=== PATIENT | female | born 1955 | race Caucasian/White ===

== ENCOUNTER → 2017-04-24 | Outpatient (CLI) | payer OTHER ==
[~2017-04-24] MED LIST: ALBUTEROL0.09 MG/A2 INH; CYMBALTA60 MG; DARVOCET N 1001 TAB PO; DUEXIS 800-26.1 EACH PO; ESTRADIOL PATCH; KCL; KLONOPIN0.5 MG PO; LEVAQUIN750 MG PO; METAMUCIL; METAMUCIL0.52 GM; NORVASC10 MG PO; NORVASC2.5 MG PO; NORVASC5 MG PO; POTASSIUM CHLO10 ME5 PO; POTASSIUM20 MEQ PO; PREDNISONE50 MG PO; PREMARIN1.25 MG PO; PREVACID30 MG; PRILOSEC20 M1 PO; PRILOSEC40 MG PO; PROBIOTIC1 EAC4 PO; SYMBICORT1 AE1; TAMIFLU75 MG PO; TENORMIN50 MG; TESSALON PERLE100 M1 PO; XANAX0.25 MG PO; ZITHROMAX Z PA250 MG PO; ZOFRAN ODT4 MG SL; ZOLOFT100 MG PO
== END | disposition home or self-care (01) ==
LOC: MRI 06:23
DX: M48.07 Spinal stenosis, lumbosacral region (principal); M51.16 Intervertebral disc disorders with radiculopathy, lumbar region; M43.10 Spondylolisthesis, site unspecified; M47.896 Other spondylosis, lumbar region; M51.27 Other intervertebral disc displacement, lumbosacral region

== ENCOUNTER 2017-06-01 10:50 | Inpatient (IN) | payer OTHER ==
[~2017-06-01] VITALS: Ht 152.4 cm; Wt 66.4 kg
--- NOTE | ~2017-06-01 | CON ---
[place], [place] REPORT OF CONSULTATION [id number] UNIT #: [id number] ROOM: 402 DOCTOR: MARELY CAMPBELL MD BIRTHDATE: [birth year] DOS: 06/02/2017 REASON FOR CONSULTATION: Chest pain. HISTORY OF PRESENT ILLNESS: This is a 61-year-old woman who has previously unknown to [facility]. She had been evaluated in the past by Dr. Tj Hendricks, but has not seen a medicinal chemist in years. She states that she had problems with esophageal spasm and accompanying chest pain years ago. According to her report, a cardiac workup was entirely normal. A pharmacologic myocardial perfusion study done on 07/29/2012 was unremarkable. Eventually, a diagnosis of esophageal spasm was made. She was treated with Klonopin 0.5 mg twice a day and sublingual nitroglycerin p.r.n. She states that her symptoms resolved after that and she has not had significant chest pain in well over a year. She states that she has been under considerable stress lately. 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 She has not had any exertional chest pain. On 06/01/2017, she was caring for a horse that was having a colic. She felt severely stressed and developed chest pain. She stated that it was identical to the pains that she had had in the past. She took 3 of her nitroglycerin without immediate relief and therefore, EMS were called. By the time they arrived, she began to feel better. It is noteworthy that her nitroglycerin tablets were old and in 2011. In the Emergency Room, her myoglobin and MB were elevated. Total CK was normal. Serial troponin levels were all normal. It is likely that the myoglobin was due to skeletal muscle trauma from the fact that she had recently dropped an anvil on her foot. She had no acute EKG changes. She was watched overnight and had no further recurrence of her pain. We were asked to determine if any other cardiac workup was appropriate at this time. PAST MEDICAL HISTORY: Includes: 1. Essential hypertension. 2. Gastroesophageal reflux disease. 3. Hyperlipidemia. 4. Anxiety and depression. 5. History of hand surgery, right knee surgery, shoulder surgery, thumb surgery, tubal ligation, carpal tunnel surgery, cholecystectomy, hysterectomy, section, and laminectomy. 6. History of hypokalemia, probably due to insensible loss from excessive sweating. REVIEW OF SYSTEMS: The patient denies diplopia or loss of vision. She denies lightheadedness or syncope. She denies fevers, chills, sweats or recent weight change. She denies nausea or vomiting. She does have chronic back pain. She denies orthopnea or PND. She denies any change in bowel or bladder habits. She denies blood in her stools or urine. She denies hemoptysis or hematemesis. She denies any peripheral edema. She does sweat heavily, but this is a chronic condition for her. The remainder of her review of systems is normal except as [place], [place] REPORT OF CONSULTATION NAME: SERGO ELIZABETH UNIT #: [id number] ROOM: 402 DOCTOR: MARELY CAMPBELL MD BIRTHDATE: [birth year] noted above. MEDICATIONS: Prior to admission, amlodipine 10 mg daily, clonazepam 0.5 mg b.i.d., conjugated estrogens 0.9 mg at bedtime, ibuprofen with famotidine 800/26.6 one t.i.d., probiotic daily, omeprazole 40 mg daily, oxycodone with acetaminophen once a day, potassium 10 mEq daily, rosuvastatin 40 mg at bedtime, sertraline 100 mg daily, vitamin E with Coenzyme Q10 two a day and nitroglycerin 0.6 mg sublingually p.r.n. chest pain. ALLERGIES: The patient lists allergies to ONDANSETRON and PRODUCTS. SOCIAL HISTORY: The patient works on a farm including raising horses. She does not consume alcohol or cigarettes. PHYSICAL EXAMINATION: GENERAL: The patient is a well-nourished white female who is awake, alert and oriented. VITAL SIGNS: Pulse is 67 and regular, blood pressure 122/74, she is afebrile. She weighs 66.4 kg and has a body mass index 28.6. HEENT: Normocephalic, atraumatic. Extraocular muscles are intact. Sclerae are clear. Pupils are equal, round and reactive to light. Oral mucosa is moist. Tongue is midline. NECK: Supple. She has no jugular distention. Carotids are full. I heard no bruits. She had no neck or supraclavicular masses. No thyromegaly. LUNGS: Respirations are unlabored. Her chest is clear to auscultation and percussion. She has no presacral edema or chest wall tenderness. CARDIOVASCULAR: Has a regular rhythm. She has a soft S4 gallop, but no S3 or murmur. The PMI is not displaced. She has no precordial heave, lift or thrill. ABDOMEN: Soft and normally active without masses, organomegaly or bruits. EXTREMITIES: Showed no edema. Peripheral pulses are easily palpated in the feet bilaterally. Serial troponin levels have been normal. IMPRESSIONS: 1. Atypical chest pain. It is most likely that this does indeed represent esophageal spasm. In the past, this has resolved quickly when the patient has taken nitroglycerin. Unfortunately, the nitroglycerin she had on hand was in 2011 and therefore, unlikely to be at all potent. 2. History of hypertension. 3. History of hyperlipidemia. 4. History of hypokalemia, most likely due to loss from excessive sweating. 5. Degenerative joint disease. PLAN: The patient has very rare episodes of her esophageal spasm. She denies any recent change in exercise capacity and has had a cardiac workup in the past that was benign. I think therefore that further hospitalization for cardiac evaluation now is not indicated. If her symptoms recur, we could evaluate her as an outpatient with a stress test and echocardiogram. For now, I agree that p.r.n. nitrates are appropriate for esophageal spasm. We could consider [place], [place] REPORT OF CONSULTATION NAME: SERGO ELIZABETH UNIT #: [id number] ROOM: 402 DOCTOR: MAERLY CAMPBELL MD BIRTHDATE: [birth year] isosorbide if her symptoms become more frequent and especially if she does not have any evidence for coronary artery disease on further testing. From our perspective, she could be discharged to home. I did give her my card and told her to call our office if her symptoms recur. We would arrange at that point for her to have a stress test in followup. For now, I did recommend to the hospitalist service that they provide her prescription for fresh nitroglycerin so that in the future if she has chest pains, she has something that would be effective for this management. We thank the hospitalist physicians for asking our advice regarding her care. MARELY CAMPBELL MD CM:CONSTR:REPORT OF CONSULTATION 1320 06/02/17 1420 interface
[2017-06-01 10:50] VITALS: BP 126/80
[2017-06-01 11:10] LABS: BASO # 0.1 10*3/uL (0.0-0.1); BASO % 0.6 % (0.0-1.0); EOS # 0.1 10*3/uL (0.0-0.4); EOS % 0.7 % (1.0-4.0); HEMOGLOBIN 14.2 g/dl (12.0-16.0); LYMPH # 2.3 10*3/uL (1.3-4.4); LYMPH % 27.4 % (27.0-41.0); MEAN CELL VOLUME 89.2 fl (81.0-99.0); MEAN CORPUSCULAR HGB 30.1 pg (27.0-31.0); MEAN CORPUSCULAR HGB CONC 33.8 g/dl (33.0-37.0); MEAN PLATELET VOLUME 9.4 fl (9.6-12.3); MONO # 0.6 10*3/uL (0.1-1.0); MONO % 7.6 % (3.0-9.0); NEUT # 5.3 10*3/uL (2.3-7.9); NEUT % 63.5 % (47.0-73.0); PLATELET COUNT AUTOMATED 310 10*3/uL (130-400); RED BLOOD COUNT 4.71 10*6/uL (4.10-5.10); RED CELL DISTRI WIDTH 13.2 % (0-14.5); WHITE BLOOD COUNT 8.3 10*3/uL (4.8-10.8)
[2017-06-01 11:19] LABS: PROTHROMBIN TIME 10.4 SECONDS (9.0-12.4)
[2017-06-01 11:27] LABS: ALBUMIN 3.6 gm/dl (3.1-4.5); ALKALINE PHOSPHATASE 65 U/L (45-117); BILIRUBIN, TOTAL 0.3 mg/dl (0.2-1.0); BUN 16 mg/dl (7-24); C-REACTIVE PROTEIN 0.39 MG/DL (0-0.3); CARBON DIOXIDE 24 mmol/L (21-32); CHLORIDE 108 mmol/L (98-107); CPK 116 U/L (26-192); EST GLOM FILT AFRICAN AMERICAN > 60 ml/min; GLUCOSE 112 mg/dL (65-99); MAGNESIUM 1.7 mg/dL (1.5-2.1); POTASSIUM 3.3 mmol/L (3.5-5.1); SGOT/AST 21 IU/L (3-35); SGPT/ALT 40 U/L (12-78); SODIUM 142 mmol/L (136-145)
[2017-06-01 11:28] LABS: TROPONIN I < 0.015 ng/ml (<0.045)
[2017-06-01 11:30] LABS: CKMB 5.7 ng/ml (0.5-3.6)
[2017-06-01 11:50] VITALS: BP 125/80
[2017-06-01 12:01] VITALS: BP 127/77
[2017-06-01] MEDS ORDERED: PREMARIN0.9 MG PO (12:39)
[2017-06-01] MEDS ORDERED: CRESTOR40 M1 PO (12:40)
[2017-06-01 16:07] VITALS: BP 127/76
[2017-06-01 20:00] VITALS: BP 121/74
[2017-06-01] MEDS ORDERED: COQ10-VIT E 201 EACH PO (21:15)
[2017-06-01] MEDS ORDERED: APAP/OXYCODONE1 TA2 PO (21:16)
[2017-06-01] MEDS ORDERED: NITROGLYCERIN SL (21:26)
[2017-06-02] VITALS: BP 137/84
[2017-06-02 07:06] LABS: BASO % 0.5 % (0.0-1.0); EOS # 0.1 10*3/uL (0.0-0.4); EOS % 1.7 % (1.0-4.0); HEMATOCRIT 41.1 % (37.0-47.0); HEMOGLOBIN 13.9 g/dl (12.0-16.0); LYMPH # 2.1 10*3/uL (1.3-4.4); LYMPH % 33.9 % (27.0-41.0); MEAN CELL VOLUME 90.3 fl (81.0-99.0); MEAN CORPUSCULAR HGB 30.5 pg (27.0-31.0); MEAN CORPUSCULAR HGB CONC 33.8 g/dl (33.0-37.0); MEAN PLATELET VOLUME 8.9 fl (9.6-12.3); MONO # 0.5 10*3/uL (0.1-1.0); MONO % 8.1 % (3.0-9.0); NEUT # 3.5 10*3/uL (2.3-7.9); NEUT % 55.5 % (47.0-73.0); PLATELET COUNT AUTOMATED 280 10*3/uL (130-400); RED BLOOD COUNT 4.55 10*6/uL (4.10-5.10); RED CELL DISTRI WIDTH 13.5 % (0-14.5); WHITE BLOOD COUNT 6.3 10*3/uL (4.8-10.8)
[2017-06-02 07:40] LABS: BUN 18 mg/dl (7-24); CARBON DIOXIDE 26 mmol/L (21-32); CHLORIDE 105 mmol/L (98-107); CHOLESTEROL 161 mg/dL (<200); EST GLOM FILT AFRICAN AMERICAN > 60 ml/min; GLUCOSE 93 mg/dL (65-99); HDL CHOLESTEROL 81 mg/dl (40-60); LDL CHOLESTEROL 68 mg/dL (9-159); SODIUM 139 mmol/L (136-145); TRIGLYCERIDES 62 mg/dl (<150); VLDL CHOLESTEROL 12 mg/dL (6-40)
[2017-06-02 07:41] LABS: HEMOGLOBIN A1c 5.9 % (4.8-5.6)
[2017-06-02 07:47] LABS: THYROID STIM HORMONE (HS) 0.643 uIU/ml (0.358-4.75)
[2017-06-02 08:00] VITALS: BP 112/78
[2017-06-02 08:08] LABS: VITAMIN D, 25-HYDROXY 18.6 ng/mL (30-100)
[2017-06-02 08:09] LABS: FOLIC ACID 11.69 ng/mL (>5.38)
[2017-06-02] MEDS ORDERED: KLOR-CON M2020 ME1 PO (11:39)
[2017-06-02 12:00] VITALS: BP 122/74
[2017-06-02] MEDS ORDERED: NITROGLYCERIN SL (13:08)
== END 2017-06-02 13:57 | disposition home or self-care (01) | DRG 313 ==
LOC: ED 10:50 → 4E 12:14 → EDHOLD 12:14 → 4E 12:21
PROVIDERS: Emergency Medicine; Internal Medicine
DX: R07.89 Other chest pain (principal); E87.8 Other disorders of electrolyte and fluid balance, not elsewhere classified; F33.9 Major depressive disorder, recurrent, unspecified; E87.6 Hypokalemia; I10 Essential (primary) hypertension; F41.9 Anxiety disorder, unspecified; K21.9 Gastro-esophageal reflux disease without esophagitis; N95.1 Menopausal and female climacteric states; E78.5 Hyperlipidemia, unspecified; M15.9 Polyosteoarthritis, unspecified; G47.00 Insomnia, unspecified; R73.9 Hyperglycemia, unspecified; R74.8 Abnormal levels of other serum enzymes; Z66 Do not resuscitate; R89.7 Abnormal histological findings in specimens from other organs, systems and tissues; Z83.3 Family history of diabetes mellitus; Z88.8 Allergy status to other drugs, medicaments and biological substances; Z90.49 Acquired absence of other specified parts of digestive tract; Z90.710 Acquired absence of both cervix and uterus; Z79.899 Other long term (current) drug therapy

== ENCOUNTER 2017-10-27 16:04 | Emergency (ER) | payer OTHER ==
[~2017-10-27] VITALS: Wt 70.3 kg
[~2017-10-27 16:04] MED LIST changes: +APAP/OXYCODONE1 TA2 PO; +COQ10-VIT E 201 EACH PO; +CRESTOR40 M1 PO; +KLOR-CON M2020 ME1 PO; +NITROGLYCERIN SL; +PREMARIN0.9 MG PO
[2017-10-27] MEDS ORDERED: KEFLEX 500 MG E2 CAP PO (16:10)
[2017-10-27 16:33] LABS: BASO % 0.6 % (0.0-1.0); EOS # 0.3 10*3/uL (0.0-0.4); EOS % 5.1 % (1.0-4.0); HEMOGLOBIN 15.4 g/dl (12.0-16.0); LYMPH # 1.5 10*3/uL (1.3-4.4); LYMPH % 23.2 % (27.0-41.0); MEAN CELL VOLUME 89.7 fl (81.0-99.0); MEAN CORPUSCULAR HGB CONC 33.5 g/dl (33.0-37.0); MEAN PLATELET VOLUME 9.3 fl (9.6-12.3); MONO # 0.7 10*3/uL (0.1-1.0); MONO % 10.1 % (3.0-9.0); NEUT % 60.7 % (47.0-73.0); PLATELET COUNT AUTOMATED 322 10*3/uL (130-400); RED BLOOD COUNT 5.13 10*6/uL (4.10-5.10); RED CELL DISTRI WIDTH 13.2 % (0-14.5); WHITE BLOOD COUNT 6.7 10*3/uL (4.8-10.8)
[2017-10-27 16:49] LABS: ALBUMIN 3.7 gm/dl (3.1-4.5); ALKALINE PHOSPHATASE 85 U/L (45-117); BUN 8 mg/dl (7-24); CHLORIDE 106 mmol/L (98-107); CREATININE 0.91 mg/dL (0.55-1.02); LIPASE 116 U/L (73-393); POTASSIUM 3.7 mmol/L (3.5-5.1); SGOT/AST 50 IU/L (3-35); SGPT/ALT 61 U/L (12-78); SODIUM 139 mmol/L (136-145)
[2017-10-27] MEDS ORDERED: PHENERGAN25 M3 PO (17:21)
[2017-10-27] MEDS ORDERED: LOMOTIL 2.5-0.1 EACH PO (17:21)
== END 2017-10-27 17:22 | disposition home or self-care (01) ==
LOC: ED 16:04
PROVIDERS: Emergency Medicine
DX: K52.9 Noninfective gastroenteritis and colitis, unspecified (principal); F41.9 Anxiety disorder, unspecified; F32.9 Major depressive disorder, single episode, unspecified; K21.9 Gastro-esophageal reflux disease without esophagitis; E78.00 Pure hypercholesterolemia, unspecified; R73.9 Hyperglycemia, unspecified; G47.00 Insomnia, unspecified; Z91.048 Other nonmedicinal substance allergy status; Z88.8 Allergy status to other drugs, medicaments and biological substances; Z79.899 Other long term (current) drug therapy; Z90.710 Acquired absence of both cervix and uterus; Z90.49 Acquired absence of other specified parts of digestive tract; Z98.51 Tubal ligation status

== ENCOUNTER → 2018-04-29 | Outpatient (CLI) | payer OTHER ==
[~2018-04-29] MED LIST changes: +KEFLEX 500 MG E2 CAP PO; +LOMOTIL 2.5-0.1 EACH PO; +PHENERGAN25 M3 PO
== END | disposition home or self-care (01) ==
LOC: ORTHO 02:37
DX: M25.461 Effusion, right knee (principal); Z91.81 History of falling

== ENCOUNTER → 2018-05-15 | Outpatient (CLI) | payer OTHER | END | disposition home or self-care (01) | LOC: MRI 13:37 | DX: S83.231A Complex tear of medial meniscus, current injury, right knee, initial encounter (principal); M25.461 Effusion, right knee; X58.XXXA Exposure to other specified factors, initial encounter; Y93.89 Activity, other specified; Y92.89 Other specified places as the place of occurrence of the external cause; Y99.8 Other external cause status ==

== ENCOUNTER → 2018-05-21 | Outpatient (CLI) | payer OTHER ==
[2018-05-21 15:14] LABS: BODY FLUID WBC 235 /uL
[2018-05-21 15:51] LABS: BF LYMPHOCYTES 6 %; BF MACROPHAGES 71 %; BF MONOCYTES 1 %; BF NEUTROPHILS 22 %
== END | disposition home or self-care (01) ==
LOC: ORTHO 03:35
PROVIDERS: Orthopaedic Surgery
DX: M17.11 Unilateral primary osteoarthritis, right knee (principal)

== ENCOUNTER → 2018-06-05 | Outpatient (CLI) | payer OTHER ==
[2018-06-05 15:08] LABS: HEMATOCRIT 48.7 % (37.0-47.0); HEMOGLOBIN 15.9 g/dl (12.0-16.0); MEAN CELL VOLUME 88.7 fl (81.0-99.0); MEAN CORPUSCULAR HGB CONC 32.6 g/dl (33.0-37.0); MEAN PLATELET VOLUME 9.1 fl (9.6-12.3); RED BLOOD COUNT 5.49 10*6/uL (4.10-5.10); RED CELL DISTRI WIDTH 13.7 % (0-14.5); WHITE BLOOD COUNT 9.3 10*3/uL (4.8-10.8)
[2018-06-05 15:37] LABS: URIC ACID 4.4 mg/dL (2.6-6.0)
[2018-06-06 09:05] LABS: RHEUMATOID ARTHRITIS FACTOR 10.9 IU/mL (0.0-13.9)
== END | disposition home or self-care (01) ==
LOC: LAB → ORTHO 01:39
PROVIDERS: Orthopaedic Surgery
DX: I10 Essential (primary) hypertension (principal); M17.10 Unilateral primary osteoarthritis, unspecified knee; E55.9 Vitamin D deficiency, unspecified

== ENCOUNTER → 2018-07-23 | Outpatient (CLI) | payer OTHER ==
[~2018-07-23] MED LIST changes: +NORCO 5-325 TA1 EACH PO
[2018-07-23 12:05] LABS: BILIRUBIN NEGATIVE (NEGATIVE); BLOOD 1+ (NEGATIVE); CLARITY SL CLOUDY (CLEAR); COLOR YELLOW (YELLOW); GLUCOSE NEGATIVE (NEGATIVE); KETONE NEGATIVE (NEGATIVE); LEUKO ESTERASE 1+ (NEGATIVE); NITRITE NEGATIVE (NEGATIVE); SPECIFIC GRAVITY 1.025 (1.005-1.030); UROBILINOGEN 0.2 E.U./dl (0.2-1.0)
[2018-07-23 12:11] LABS: BASO # 0.1 10*3/uL (0.0-0.1); EOS # 0.2 10*3/uL (0.0-0.4); EOS % 3.9 % (1.0-4.0); HEMATOCRIT 43.6 % (37.0-47.0); HEMOGLOBIN 14.1 g/dl (12.0-16.0); LYMPH # 2.4 10*3/uL (1.3-4.4); LYMPH % 39.3 % (27.0-41.0); MEAN CELL VOLUME 89.3 fl (81.0-99.0); MEAN CORPUSCULAR HGB 28.9 pg (27.0-31.0); MEAN CORPUSCULAR HGB CONC 32.3 g/dl (33.0-37.0); MEAN PLATELET VOLUME 9.3 fl (9.6-12.3); MONO # 0.6 10*3/uL (0.1-1.0); MONO % 9.3 % (3.0-9.0); NEUT # 2.9 10*3/uL (2.3-7.9); NEUT % 46.3 % (47.0-73.0); PLATELET COUNT AUTOMATED 327 10*3/uL (130-400); RED BLOOD COUNT 4.88 10*6/uL (4.10-5.10); RED CELL DISTRI WIDTH 13.8 % (0-14.5); WHITE BLOOD COUNT 6.2 10*3/uL (4.8-10.8)
[2018-07-23 12:28] LABS: BACTERIA 2+; MUCOUS 2+
[2018-07-23 12:36] LABS: ALBUMIN 3.7 gm/dl (3.1-4.5); ALKALINE PHOSPHATASE 79 U/L (45-117); BUN 10 mg/dl (7-24); CHLORIDE 107 mmol/L (98-107); CREATININE 0.81 mg/dL (0.55-1.02); POTASSIUM 3.8 mmol/L (3.5-5.1); SGOT/AST 14 IU/L (3-35); SGPT/ALT 20 U/L (12-78); SODIUM 142 mmol/L (136-145); TOTAL PROTEIN 7.3 gm/dL (6.4-8.2)
== END | disposition home or self-care (01) ==
LOC: LAB 11:27
PROVIDERS: Orthopaedic Surgery
DX: Z01.818 Encounter for other preprocedural examination (principal); S83.241A Other tear of medial meniscus, current injury, right knee, initial encounter; X58.XXXA Exposure to other specified factors, initial encounter; Y93.89 Activity, other specified; Y92.89 Other specified places as the place of occurrence of the external cause; Y99.8 Other external cause status

== ENCOUNTER → 2018-07-30 | Day surgery (SDC) | payer OTHER ==
[2018-07-30] VITALS (8 sets, daily range): BP systolic 108–143; BP diastolic 53–96
[~2018-07-30] VITALS: Ht 152.4 cm; Wt 68.0 kg
--- NOTE | ~2018-07-30 | EKG ---
[place], [place] ELECTROCARDIOGRAM REPORT NAME: SERGO ELIZABETH UNIT #: [id number] ROOM: DOCTOR: GOPI DRAFT REPORT BIRTHDATE: [birth year] [facility] Test Date: 2018-07-23 Test Time: 12:53:16 Pat Name: SERGO ELIZABETH Department: Room: [facility] 07-30-18 Gender: F Director Of Intelligence: : 1955 Requested By: BHASKAR CARRIZALES Order Number: [id number] Reading MD: Jomar Shah MD Measurements Intervals [place] Rate: 54 P: 36 MS: 188 QRS: 33 QRSD: 85 T: 25 QT: 475 QTc: 451 Interpretive Statements Sinus rhythm Probable left atrial enlargement Left ventricular hypertrophy Borderline T abnormalities, anterior leads Electronically Signed On 07-23-2018 11:07:49 PDT by Jomar Shah MD CM:EKGRPT:ELECTROCARDIOGRAM REPORT [id number] BHASKAR HOSKINS DRAFT REPORT BHASKAR CARRIZALES DO
== END | disposition home or self-care (01) ==
LOC: SDC 07-23 11:00
DX: S83.241A Other tear of medial meniscus, current injury, right knee, initial encounter (principal); S83.271A Complex tear of lateral meniscus, current injury, right knee, initial encounter; M94.261 Chondromalacia, right knee; I10 Essential (primary) hypertension; J44.9 Chronic obstructive pulmonary disease, unspecified; K21.9 Gastro-esophageal reflux disease without esophagitis; Z88.8 Allergy status to other drugs, medicaments and biological substances; Z91.09 Other allergy status, other than to drugs and biological substances; Z98.890 Other specified postprocedural states; Z87.11 Personal history of peptic ulcer disease; Z90.710 Acquired absence of both cervix and uterus; X58.XXXA Exposure to other specified factors, initial encounter; Y93.89 Activity, other specified; Y92.89 Other specified places as the place of occurrence of the external cause; Y99.8 Other external cause status

== ENCOUNTER → 2018-09-07 | Outpatient (CLI) | payer OTHER | END | disposition home or self-care (01) | LOC: ORTHO 02:07 → WOUNDCARE 02:07 → LAB 08:00 → ORTHO 17:12 | DX: L97.521 Non-pressure chronic ulcer of other part of left foot limited to breakdown of skin (principal); I10 Essential (primary) hypertension; F41.9 Anxiety disorder, unspecified; Z85.820 Personal history of malignant melanoma of skin; Z90.710 Acquired absence of both cervix and uterus ==

== ENCOUNTER → 2018-09-14 | Outpatient (CLI) | payer OTHER | END | disposition home or self-care (01) | LOC: WOUNDCARE 04:35 | DX: L97.522 Non-pressure chronic ulcer of other part of left foot with fat layer exposed (principal); I10 Essential (primary) hypertension; F32.9 Major depressive disorder, single episode, unspecified; Z85.820 Personal history of malignant melanoma of skin ==

== ENCOUNTER → 2018-09-29 | Outpatient (CLI) | payer OTHER | END | disposition home or self-care (01) | LOC: WOUNDCARE 01:25 | DX: L97.522 Non-pressure chronic ulcer of other part of left foot with fat layer exposed (principal); I10 Essential (primary) hypertension; F41.9 Anxiety disorder, unspecified; Z85.820 Personal history of malignant melanoma of skin ==

== ENCOUNTER → 2018-10-05 | Outpatient (CLI) | payer OTHER | END | disposition home or self-care (01) | LOC: WOUNDCARE 02:26 | DX: L97.521 Non-pressure chronic ulcer of other part of left foot limited to breakdown of skin (principal); I10 Essential (primary) hypertension; F41.9 Anxiety disorder, unspecified; Z85.820 Personal history of malignant melanoma of skin ==

== ENCOUNTER → 2018-11-09 | Outpatient (CLI) | payer OTHER ==
[~2018-11-09] MED LIST changes: +CO Q-10400 MG PO; +Carafate1 GM/10 ML PO; +VITAMIN D35000 UNIT PO
--- NOTE | ~2018-11-09 | EKG ---
[place], [place] ELECTROCARDIOGRAM REPORT NAME: SERGO ELIZABETH UNIT #: [id number] ROOM: DOCTOR: EPIPHANY DRAFT REPORT BIRTHDATE: [birth year] [facility] Test Date: 2018-11-09 Test Time: 12:29:08 Pat Name: SERGO ELIZABETH Department: Room: Gender: F Shoe Maker: Aimee Dorman : 1955 Requested By: POLA LUEVANO Order Number: [id number] Reading MD: Beny Flores MD Measurements Intervals [place] Rate: 67 P: 31 MO: 177 QRS: 25 QRSD: 88 T: 19 QT: 404 QTc: 427 Interpretive Statements Sinus rhythm Left ventricular hypertrophy with secondary ST changes Compared to ECG 07/23/2018 12:53:16 No significant change Electronically Signed On 11-09-2018 15:09:55 PST by Beny Flores MD CM:EKGRPT:ELECTROCARDIOGRAM REPORT [id number] MD GOPI ROUSSEAU DRAFT REPORT POLA LUEVANO MD
[2018-11-09 12:35] LABS: BASO % 0.5 % (0.0-1.0); EOS # 0.1 10*3/uL (0.0-0.4); EOS % 1.6 % (1.0-4.0); HEMOGLOBIN 15.5 g/dl (12.0-16.0); LYMPH # 3.1 10*3/uL (1.3-4.4); LYMPH % 35.5 % (27.0-41.0); MEAN CELL VOLUME 88.1 fl (81.0-99.0); MEAN CORPUSCULAR HGB 28.4 pg (27.0-31.0); MEAN CORPUSCULAR HGB CONC 32.3 g/dl (33.0-37.0); MEAN PLATELET VOLUME 9.2 fl (9.6-12.3); MONO # 0.6 10*3/uL (0.1-1.0); MONO % 6.7 % (3.0-9.0); NEUT # 4.9 10*3/uL (2.3-7.9); NEUT % 55.1 % (47.0-73.0); PLATELET COUNT AUTOMATED 311 10*3/uL (130-400); RED BLOOD COUNT 5.45 10*6/uL (4.10-5.10); RED CELL DISTRI WIDTH 14.4 % (0-14.5); WHITE BLOOD COUNT 8.8 10*3/uL (4.8-10.8)
[2018-11-09 12:53] LABS: BUN 13 mg/dl (7-24); CHLORIDE 109 mmol/L (98-107); CREATININE 0.87 mg/dL (0.55-1.02); POTASSIUM 3.6 mmol/L (3.5-5.1); SODIUM 144 mmol/L (136-145)
== END | disposition home or self-care (01) ==
LOC: LAB 11:53
PROVIDERS: Orthopaedic Surgery
DX: M19.011 Primary osteoarthritis, right shoulder (principal); J18.9 Pneumonia, unspecified organism

== ENCOUNTER → 2019-03-17 | Outpatient (CLI) | payer OTHER ==
[~2019-03-17] MED LIST changes: +ASPIRIN325 M2 PO; +HYDROCODONE-AC1 EAC1 PO; +KETOROLAC10 MG PO; +Lovenox40 MG/0.4 SC
[2019-03-17 13:55] LABS: BODY FLUID WBC 181 /uL
[2019-03-17 19:42] LABS: BF LYMPHOCYTES 17 %; BF MACROPHAGES 77 %; BF NEUTROPHILS 6 %
== END | disposition home or self-care (01) ==
LOC: ORTHO 00:36
PROVIDERS: Orthopaedic Surgery
DX: M17.11 Unilateral primary osteoarthritis, right knee (principal)

== ENCOUNTER 2019-06-15 00:38 | Inpatient (IN) | payer OTHER ==
[2019-06-10 18:10] VITALS: BP 130/67
[2019-06-15] VITALS (11 sets, daily range): BP systolic 94–148; BP diastolic 46–77
[~2019-06-15] VITALS: Ht 157.4 cm; Wt 72.6 kg
[~2019-06-15 00:38] MED LIST changes: -ASPIRIN325 M2 PO; -HYDROCODONE-AC1 EAC1 PO; -KETOROLAC10 MG PO; -Lovenox40 MG/0.4 SC
--- NOTE | 2019-06-15 11:52 | NUR ---
DR. CARRIZALES NOTED TWO SCRATCHES ON POSTERIOR RIGHT UPPER CALF AND CIRCLED THEM. THEY ARE EACH 3.5CM IN LENGTH.
--- NOTE | 2019-06-15 18:10 | NUR ---
A 63, admitted to 5E, under the services of DEXTER Barrow DO with a diagnosis of Total Knee Replacement. Chief complaint is multiple complaints. Patient arrived via stretcher from [place]. Monitor applied. Initial assessment completed. Vital signs taken and recorded. DEXTER BARROW DO notified of admission to the unit. Orders received. See assessment for past medical history, medications and allergies. Patient and/or family oriented to unit. [address] visitation policy reviewed. Clothing/patient valuable form completed. MARKUS MORGAN
--- NOTE | 2019-06-15 21:00 | NUR ---
CPM ON 15 MINS. PATIENT STATED IT WAS PAINFUL AT FIRST BUT BECAME MORE TOLERABLE.
--- NOTE | 2019-06-15 22:15 | NUR ---
Patients pain was untolerable and she was requesting that something be placed behind her knee. Per physician order roll was placed under ankle, and ice was applied. See new orders.
[2019-06-16] VITALS: BP 133/72
--- NOTE | 2019-06-16 00:17 | NUR ---
PATIENT STATED SHE WAS IN SEVERE PAIN, THE MORPHINE OR NORCO WAS NOT EFFECTIVE. SPOKE WITH DR. WU AND RECEIVED NEW ORDER FOR DILAUDID. WAS GIVEN. WILL MONITOR AND REASSESS.
--- NOTE | 2019-06-16 02:10 | NUR ---
PATIENT STATED THE DILAUDID WAS EFFECTIVE FOR THE PAIN, FOR A SHORT TIME.
--- NOTE | 2019-06-16 03:50 | NUR ---
PATIENT STATED SHE WAS HAVING SO MUCH PAIN IN HER RT CALF, THAT IT WAS MAKING HER NAUSEATED. PHENAGREN GIVEN. WILL MONITOR AND REASSESS.
--- NOTE | 2019-06-16 03:57 | NUR ---
24 HR chart check completed.
--- NOTE | 2019-06-16 06:20 | NUR ---
PATIENT MEDICATED WITH DILAUDID AND PLACED ON CPM MACHINE.
--- NOTE | 2019-06-16 06:22 | NUR ---
SERGO ELIZABETH [id number] Please refer to the physician's history and physical for past medical history, comorbid conditions, and allergies. Diagnosis: S/P RIGHT TOTAL KNEE REPLACEMENT Isaac Score: 20,LOW OR NO RISK WOUND DESCRIPTIONS: Wound Number: 1 Right knee unable to assess due to post op dressing being intact. No strike through drainage noted at time of assessment. Patient stated she will follow up with Dr. Munguia upon discharge. Surface the patient is resting on: Isoflex SKIN PREVENTION RECOMMENDATION: 1. Pressure redistribution support surface as appropriate 2. Elevate heels 3. Remove boots/TEDS every shift and reapply 4. Head of bed 30 degrees as tolerated 5. Assess nutrition and hydration 6. Manage moisture 7. Avoid the use of containment devices while in bed 8. Use absorptive products on surfaces limit layers of linens on bed 9. Turn and reposition every 1-2 hours in bed and every 1 hour in chair as tolerated 10. Weight shifts every 15 minutes while up in chair 11. Offloading with pillows or device to keep heels elevated off bed 12. Monitor skin at least every shift 13. Inspect under medical devices twice a day WOUND TREATMENT RECOMMENDATIONS: Continue post orders per Dr. Munguia.
[2019-06-16 06:36] LABS: BASO % 0.3 % (0.0-1.0); HEMATOCRIT 38.4 % (37.0-47.0); HEMOGLOBIN 11.9 g/dl (12.0-16.0); LYMPH # 1.1 10*3/uL (1.3-4.4); LYMPH % 10.6 % (27.0-41.0); MEAN CELL VOLUME 85.7 fl (81.0-99.0); MEAN CORPUSCULAR HGB 26.6 pg (27.0-31.0); MEAN PLATELET VOLUME 9.8 fl (9.6-12.3); MONO # 1.1 10*3/uL (0.1-1.0); MONO % 10.1 % (3.0-9.0); NEUT # 8.5 10*3/uL (2.3-7.9); NEUT % 78.5 % (47.0-73.0); PLATELET COUNT AUTOMATED 291 10*3/uL (130-400); RED BLOOD COUNT 4.48 10*6/uL (4.10-5.10); RED CELL DISTRI WIDTH 17.1 % (0-14.5); WHITE BLOOD COUNT 10.8 10*3/uL (4.8-10.8)
[2019-06-16 06:52] LABS: INTERNATIONAL NORM RATIO 0.9 (2.0-3.5)
[2019-06-16 07:04] LABS: ALBUMIN 3.2 gm/dl (3.1-4.5); ALKALINE PHOSPHATASE 114 U/L (45-117); BUN 9 mg/dl (7-24); CHLORIDE 103 mmol/L (98-107); CREATININE 0.82 mg/dL (0.55-1.02); PHOSPHOROUS 2.5 mg/dL (2.5-4.9); POTASSIUM 3.6 mmol/L (3.5-5.1); SGOT/AST 82 IU/L (3-35); SGPT/ALT 61 U/L (12-78); SODIUM 138 mmol/L (136-145); TOTAL PROTEIN 6.9 gm/dL (6.4-8.2)
[2019-06-16 08:00] VITALS: BP 154/80
--- NOTE | 2019-06-16 08:33 | NUR ---
INSTRUCTOR GROUND SERVICES spoke with the patient about discharge planning. The patient stated she is unable to go to SNF due to her husbands medical issues. She stated he has an LVAD and INR problems. The patient stated it is just her and her at home. They live in a one story home with a basement. There are three steps entering the home at the kitchen. The patient stated she does not intend on going into the basement. The patient stated she does have a walker and shower chair. She stated that prior to admission she was independent with ADLs/IADLs. She stated that she does not cook, her or family friend Radha Soares does the cooking. She stated that Radha looks in on her and her frequently and she takes good care of them. She stated she has a history of Outpatient PT at [facility]. She stated she would like [facility] upon discharge. FERNANDO notified Lidia Solar Energy Specialist. -FERNANDO Garcia
--- NOTE | 2019-06-16 09:25 | NUR ---
PHYSICAL THERAPY Physical therapy evaluation complete, 5E. Full evaluation/details to follow. Moderate complexity evaluation (82590) per chart review and evaluation. Precautions include WBAT right LE, fall risk. PT to progress with gait, transfers, and LE strength per POC. Recommend SNF at discharge. Thank you. Yu Alejandre,PT,DPT.
--- NOTE | 2019-06-16 09:28 | NUR ---
Occuapational Therapy evaluation completed on 5 with full eval to follow. Precautions include WBAT RLE, R TKA precautions,new ww use, rodriguez, CMP use,r knee pain, nauseated w/ movement out of bed d/t pain,high complexity level 27317 via chart review, testing and evaluation. REcommend SNF but patient insists upon d/c home with home health OT, PT,SN. Patient has 3 steps in the home. Thank you. Inge Little OTr/l
--- NOTE | 2019-06-16 11:18 | NUR ---
Trap Puller in to talk to patient. Patient states lives at HOME with . There are 3 steps in the home. Physician: NONE AT THIS TIME PER PT [facility] services: NONE Patient's level of ADLs: INDEPENDENT Patient has working utilities: YES DME: NONE Follow-up physician's appointment after d/c: WILL DECIDE ON ONE AND MAKE FOLLOW UP APPOINTMENT Does patient want to access PORTAL?: NO Discharge plan PT LIVES AT HOME WITH HER . STATES SHE WANTS TO GO HOME AND WANTS TO HAVE [facility] NURSING AND PT AT HOME. TALKED TO HER ABOUT SNF STAY BUT AT THIS TIME SHE REFUSES. TOLD HER I WOULD TALK TO HER AGAIN AFTER THERAPY TODAY TO SEE IF SHE CHANGES HER MIND. WILL CONTINUE TO FOLLOW. STATES SHE HAS A RIDE HOME.. CL KONG
[2019-06-16 12:00] VITALS: BP 129/70
--- NOTE | 2019-06-16 12:55 | NUR ---
PHYSICAL THERAPY Patient seen this pm 1;1 for therapy and was sitting semi reclined in bedside chair upon therapist arrival. Patient reports 9/10 R knee pain and presented with R LE alhaji wrap. Patient is WBAT on R LE and performed several sit to stand transfers from low chair surface, Mod A x 2. Patient tolerates < 1 minute static stand each trial while demonstrating "slouched" upright posture. Patient completed SPT to EOB sit with use of wh walker, MOD A, including 4-5 steps, antalgic gait pattern. Patient returned to supine in bed MAX A x 2 and remained with call light, tray table, telephone and bed alarm for safety. Will continue per POC as tolerated, total treatment time 14 minutes. Alex Guillaume, BRAND EXECUTIVE
--- NOTE | 2019-06-16 13:15 | NUR ---
OT NOTE Pt was seen this P.M. 1:1 for 20 minute OT session. Upon arrival pt was sitting upright in the recliner. Pt identified by name and and had complaints of 9/10 R knee pain at rest. Pt presented to therapy with continuous 2L-O2 via NC which she remained on throughout entire session. Pt completed multiple sit to stand transfers from chair level with modA X 2 and use of w/w for UE support. Challenged pt's static standing tolerance needed for increased I in self care tasks and functional transfers and pt was able to tolerate aprox 2 minutes at a time before sitting due to pain and fatigue. Throughout static standing pt required verbal prompts for correcting posture. Pt then completed sit to stand with modA X 2 followed by stand pivot from recliner to the EOB with Afia X 2 and use of w/w. There she transferred back into bed sit to supine with maxA X 2. Throughout entire session pt required frequent rest breaks due to increased nausea. Pt was left supine in bed with call light in hand, tray table in place, and bed alarm on for safety. Continue with rec D/C plan to SNF. JEREL Ordaz/Abeba
--- NOTE | 2019-06-16 13:42 | NUR ---
BACK IN TO TALK WITH PT ABOUT SKILLED STAY. SHE DID NOT DO WELL WITH THERAPY TODAY AND HAS NOW AGREED TO GO TO [facility]. GORDY PIMENTEL INFORMED AND WILL MAKE REFERRAL. WILL CONTINUE TO FOLLOW.
--- NOTE | 2019-06-16 13:44 | NUR ---
FERNANDO received notice [facility] Faxed referral. Patient will require a Pre-Cert. -FERNANDO Garcia
[2019-06-16 16:00] VITALS: BP 145/79
--- NOTE | 2019-06-16 18:30 | NUR ---
CALLED RADIOLOGY TO HAVE U/S READ STAT
[2019-06-16 20:00] VITALS: BP 132/80
[2019-06-17] VITALS (7 sets, daily range): BP systolic 100–144; BP diastolic 52–82
[2019-06-17 06:47] LABS: BASO % 0.3 % (0.0-1.0); EOS # 0.1 10*3/uL (0.0-0.4); EOS % 0.6 % (1.0-4.0); HEMATOCRIT 33.1 % (37.0-47.0); HEMOGLOBIN 10.5 g/dl (12.0-16.0); LYMPH # 1.7 10*3/uL (1.3-4.4); LYMPH % 15.9 % (27.0-41.0); MEAN CELL VOLUME 86.4 fl (81.0-99.0); MEAN CORPUSCULAR HGB 27.4 pg (27.0-31.0); MEAN CORPUSCULAR HGB CONC 31.7 g/dl (33.0-37.0); MEAN PLATELET VOLUME 9.1 fl (9.6-12.3); MONO # 0.9 10*3/uL (0.1-1.0); MONO % 8.9 % (3.0-9.0); NEUT # 7.7 10*3/uL (2.3-7.9); NEUT % 73.8 % (47.0-73.0); PLATELET COUNT AUTOMATED 211 10*3/uL (130-400); RED BLOOD COUNT 3.83 10*6/uL (4.10-5.10); WHITE BLOOD COUNT 10.4 10*3/uL (4.8-10.8)
[2019-06-17 07:11] LABS: BUN 6 mg/dl (7-24); CHLORIDE 105 mmol/L (98-107); CREATININE 0.61 mg/dL (0.55-1.02); SODIUM 140 mmol/L (136-145)
--- NOTE | 2019-06-17 08:45 | NUR ---
PATIENT REQUESTING PAIN MEDICATION FOR RIGHT KNEE PAIN RATED 9/10 ON 0/10 SCALE. NORCO ADMINISTERED PRESCRIBED. PATIENT DOES NOT WANT DILAUDID, STATES THAT IT IS NOT EFFECTIVE. WILL MONITOR FOR EFFECTIVENESS.
--- NOTE | 2019-06-17 08:45 | NUR ---
PATIENT REQUESTING NAUSEA MEDICATION. PHENERGAN ADMINISTERED PRESRIBED. WILL MONITOR FOR EFFECTIVENESS.
--- NOTE | 2019-06-17 09:38 | NUR ---
DTR AREN CALLED BECAUSE PATIENT STATES THAT NOCO IS HELPING HER PAIN A LITTLE AND DILAUDID IS NOT EFFECTIVE. SHE DID GET ONE TIME DOSE TORODOL LAST NIGHT WHICH WAS EFFECTIVE. WILL BE UP TO SEE PATIENT.
--- NOTE | 2019-06-17 09:45 | NUR ---
PATIENT STATES THAT NAUSEA HAS RESOLVED AFTER PHENERGAN. WILL MONITOR.
--- NOTE | 2019-06-17 09:49 | NUR ---
PATIENT STATES THAT PAIN IS STILL 8/10 ON 0/10 SCALE AFTER NORCO. WILL F/U WITH PHYSICIAN.
--- NOTE | 2019-06-17 10:01 | NUR ---
OT NOTE Attempted to see pt this A.M. for OT session and upon arrival pt was supine in bed. Pt stated that she was unable to do anything until the doctor came up to see her and be given pain medicine. Will check back at a later time and continue with POC as able. TAMMIE Ordaz
--- NOTE | 2019-06-17 10:29 | NUR ---
PATIENT MEDICATED WITH TORODOL FOR RIGHT KNEE PAIN RATED 8/10 ON 0/10 SCALE. WILL MONITOR FOR EFFECTIVENESS.
--- NOTE | 2019-06-17 10:45 | NUR ---
STEWART REMOVED ORDERED.
--- NOTE | 2019-06-17 11:04 | NUR ---
Faxed updates to [facility].-FERNANDO Garcia
--- NOTE | 2019-06-17 11:16 | NUR ---
PHYSICAL THERAPY Patient presented to therapy in supine after having her Toradol injection for pain modulation. Patient has a pain level in the R knee of 6/10. Patient was identified by name and on wrist band. Patient transferred supine to sitting on EOB with SBA and verbal cues for moving LEs out over EOB. Patient demonstrated proper use of overhead trapeze. Patient sat on EOB unassisted. Patient transferred sit to stand from EOB with SBA. Patient ambulated 200' x 1 with Wh Walker and Close Supervision and no LOB or other difficulty. Patient required verbal cues for heel down, loading and swing through phases of gait. Patient transferred to bedside chair with SBA with verbal cues for putting hands back on armrests of chair and kicking R LE out ahead of her. Patient was left in bedside chair with LEs elevated, call light within reach, and phone near patient. Patient was 1:1 with this BOTTLE SORTER for 18 minutes total. YUE REID BOTTLE SORTER
--- NOTE | 2019-06-17 11:21 | NUR ---
OT NOTE Pt was seen this A.M. 1:1 for 24 minute OT session. Upon arrival pt was supine in bed. Pt identified by name and and had complaints of 6/10 R knee pain. Pt was educated on leg lift for increased I in bed mobility. Pt then transferred supine to sit EOB with Afia for inital start of leg lift and was then able to complete with SBA. Sit to stand completed from bed level with SBA and use of w/w for UE support. Functional mobility completed into the bathroom with SBA and use of w/w with good walker safety, good knee precautions, and good balance throughout. Pt transferred on/off standard commode with CGA for safety. Pt then completed functional mobility back to the recliner with SBA and use of w/w. Challenged pt's dynamic standing tolerance needed for increased I in self care tasks and functional transfers, pt was able to tolerate aprox 3-4 minutes at a time before sitting due to fatigue. Pt was left sitting reclined in the recliner with call light in hand, trya table in place, and phone in reach. Continue with POC as able. JEREL Ordaz/Abeba
--- NOTE | 2019-06-17 12:37 | NUR ---
SUPERINTENDENT OIL WELL SERVICES spoke with the patient who stated she wanted to go home with home health. The patient has a history of using [facility]. The patient would like VN,PT,OT. SUPERINTENDENT OIL WELL SERVICES notified Piped Buttonhole Machine Operator Lidia. -FERNANDO Garcia
--- NOTE | 2019-06-17 12:52 | NUR ---
DR CARRIZALES IN TO SEE PATIENT. DRESSING CHANGED. CHANGE IV TORODOL TO PO TORODOL.
--- NOTE | 2019-06-17 13:25 | NUR ---
OT NOTE Pt was seen this P.M. for second OT session consisting of 25 minutes. Upon arrival pt was sitting upright in the recliner. Pt identified by name and and had complaints of 6/10 R knee pain. Pt transferred sit to stand with modA due to prolong sit in the chair and low surface. Functional mobility was then completed into the bathroom with SBA and use of w/w for UE support. There she transferred on/off standard commode with CGA for safety. Clothing management completed with CGA and toilet hygiene completed with distant supervision while seated. Pt then stood sink side while washing her hands with CGA. Functional mobility then completed back to the EOB where she was educated and demonstrated on use of LB adaptive equipment including dressing stick, sock aid, and long handled sponge. Pt then doffed socks with SBA and use of dressing stick for her R foot and supervision for her L. Donned L sock with supervision and R with supervision and use of sock aid. Pt then simulated LB bathing with use of long handled sponge. Pt then donned pants with use of the dressing stick and SBA. Pt transferred back into bed sit to supine with Afia and use of leg lift for RLE management. Pt was left supine in bed with call light in hand, tray table in place, and bed alarm activated for safety. Continue with POC as able. JEREL Ordaz/Abeba
--- NOTE | 2019-06-17 13:55 | NUR ---
PHYSICAL THERAPY Patient presented to therapy in sitting in bedside chair with report of continued 6/10 pain in the R knee. Patient sit to stand transfer with CGA X 1. Patient waas identified by mary and JL on wristband. Patient ambulated with Wh Walker and Close Supervision for 240' x 1 with verbal cues for heel down, loading and heel off phases of gait. Patient transferred to supine in bed with MIN A x 1 FOR ASSISTANCE with R LE. Patient moved up in bed with sheet transfer due ot knee pain and nausea. Patient unable to perform supine ther ex due to the nausea. Patient was left in supine with call light within reach, head of bed elevated and bed alarm activated. Patient was 1:1 with this INTERACTIVE DESIGNER for 20 minutes total. YUE REID INTERACTIVE DESIGNER
--- NOTE | 2019-06-17 14:40 | NUR ---
Spoke to Kasia at Dr. Munguia's office. Patient's follow up appt is 07/[address] Munguia here at the hospital on the 6th [address] Munguia will enter in a progress note her Lovenox and ASA for discharge. Hospitalist nurse director notified.
--- NOTE | 2019-06-17 15:18 | NUR ---
PATIENT REQUESTING PAIN MEDICATION FOR RIGHT KNEE PAIN RATED 8/10 ON 0/10. NORCO ADMINISTERED PRESCRIBED. WILL MONITOR FOR EFFECTIVENESS.
--- NOTE | 2019-06-17 16:28 | NUR ---
REFERAL AND FACE TO FACE FORM FAXED TO [facility].
--- NOTE | 2019-06-17 16:36 | NUR ---
PATIENT MEDICATED WITH TORODOL FOR COMPLAINTS OF RIGHT KNEE PAIN 7/10 ON 0/10 SCALE. WILL MONITOR FOR EFFECTIVENESS.
--- NOTE | 2019-06-17 20:00 | NUR ---
RESTING IN BED. RESPIRATIONS EASY. LUNGS DIMINISHED, CLEAR. PULSE OX 91% RA, DENIES SOB OR NEED FOR O2. DRESSING DRY AND INTACT TO RIGHT KNEE. +1 BLE EDEMA R>L. TUBI-SUPERVISOR HARVESTING APPLIED, SCDS IN PLACE. CALL LIGHT WITHIN REACH.
--- NOTE | 2019-06-17 21:07 | NUR ---
MEDICATED WITH NORCO PER PRN ORDER FOR COMPLAINTS OF RIGHT KNEE PAIN RATING A 6. CALL LIGHT WITHIN REACH. WILL MONITOR FOR EFFECTIVENESS
--- NOTE | 2019-06-17 23:15 | NUR ---
MEDICATED WITH TORADOL PER PRN ORDER FOR COMPLAINTS OF RIGHT KNEE PAIN RATING A 5. CALL LIGHT WITHIN REACH. WILL MONITOR FOR EFFECTIVENESS
[2019-06-18] VITALS: BP 118/64
--- NOTE | 2019-06-18 | NUR ---
MEDS EFFECTIVE. RESTING WITH EYES CLOSED. RESPIRATIONS EASY. VSS. TUBI-FINISHING RANGE OPERATOR/SCDS MAINTAINED. CALL LIGHT WITHIN REACH
--- NOTE | 2019-06-18 00:28 | NUR ---
24 HR chart check completed.
--- NOTE | 2019-06-18 05:44 | NUR ---
MEDICATED WITH NORCO PER PRN ORDER FOR COMPLAINTS OF RIGHT KNEE PAIN RATING A 6. CALL LIGHT WITHIN REACH. WILL MONITOR FOR EFFECTIVENESS
--- NOTE | 2019-06-18 07:00 | NUR ---
MEDS EFFECTIVE. AMBULATING HALLWAY UNASSISTED. TOLERATING WELL. NO VOICED COMPLAINTS
[2019-06-18 07:04] LABS: BASO % 0.4 % (0.0-1.0); EOS # 0.2 10*3/uL (0.0-0.4); EOS % 2.9 % (1.0-4.0); HEMATOCRIT 28.8 % (37.0-47.0); HEMOGLOBIN 8.9 g/dl (12.0-16.0); LYMPH # 1.2 10*3/uL (1.3-4.4); LYMPH % 14.4 % (27.0-41.0); MEAN CELL VOLUME 86.7 fl (81.0-99.0); MEAN CORPUSCULAR HGB 26.8 pg (27.0-31.0); MEAN CORPUSCULAR HGB CONC 30.9 g/dl (33.0-37.0); MEAN PLATELET VOLUME 10.5 fl (9.6-12.3); MONO # 0.6 10*3/uL (0.1-1.0); MONO % 7.6 % (3.0-9.0); NEUT # 6.2 10*3/uL (2.3-7.9); NEUT % 74.3 % (47.0-73.0); PLATELET COUNT AUTOMATED 224 10*3/uL (130-400); RED BLOOD COUNT 3.32 10*6/uL (4.10-5.10); RED CELL DISTRI WIDTH 17.3 % (0-14.5); WHITE BLOOD COUNT 8.4 10*3/uL (4.8-10.8)
[2019-06-18 07:12] LABS: CREATININE 0.76 mg/dL (0.55-1.02)
[2019-06-18 08:00] VITALS: BP 100/56
--- NOTE | 2019-06-18 09:25 | NUR ---
PHYSICAL THERAPY Patient seen this am 1;1 for therapy visit and was supine in bed upon therapist arrival. Patient was pleasant transfering supine to sit EOB and sit to stand SBA. Patient ambulates with use of wh walker, > 200 feet, SBA, demonstrating improved stride with decreased heel strike. Patient instructed / performed standing R Gastroc stretch and mini lunge to promote increased knee flexion without c/o. Patient returned to supine in bed with mild fatigue stating she wanted to rest since not sleeping well last night. Patient remained with call light, tray table and cell phone. Will continue per POC as tolerated, total treatment time 17 minutes. Alex Guillaume, ASSET PROTECTION REPRESENTATIVE
--- NOTE | 2019-06-18 09:30 | NUR ---
OT NOTE Pt was seen this A.M. 1:1 for 20 minute OT session. Upon arrival pt was supine in bed. Pt identified by name and and had complaints of 8/10 R knee pain. Pt transferred supine to sit EOB with SBA and use of leg lift for RLE management. Sit to stand completed from bed level with SBA and use of w/w for UE support. Functional mobility completed into the bathroom with SBA and use of w/w. There she transferred on/off standard commode with SBA. Clothing management completed with SBA and toilet hygiene completed with distant supervision while seated. Pt then stood sink side while washing her hands and completing hair care with SBA. Functional mobility completed back to the EOB where she transferred sit to supine with SBA and use of leg lift. There she was left with call light in hand, tray table in place, and phone in reach. Continue with POC as able. JEREL Ordaz/Abeba
--- NOTE | 2019-06-18 09:34 | NUR ---
CALL [facility] TO CHECK COST OF LOVENOX FOR PT. PER PHARMACIST THEY CAN NOT CHECK IT WITHOUT A PERSCRIPTION. WILL CALL INSURANCE TO SEE IF IT HAS TO BE PREAUTHORIZED.
--- NOTE | 2019-06-18 11:10 | NUR ---
CALLED OUR PHARMACY AT [facility] FOR COST OF LOVENOX IS $20 FOR 10 DAY SUPPLY. TALKED WITH PT AND SHE IS OK WITH COST AND WOULD LIKE TO GET IT HERE. DR YOUNGER NOTIFIED.
[2019-06-18] MEDS ORDERED: HYDROCODONE-AC1 EAC1 PO (11:24)
[2019-06-18] MEDS ORDERED: KETOROLAC10 MG PO (11:24)
[2019-06-18] MEDS ORDERED: PHENERGAN25 M3 PO (11:28)
[2019-06-18] MEDS ORDERED: Lovenox40 MG/0.4 SC (11:28)
[2019-06-18] MEDS ORDERED: ASPIRIN325 M2 PO (11:28)
--- NOTE | 2019-06-18 14:56 | NUR ---
OCCUPATIONAL THERAPY CO-SIGN I approve of the Occupational Therapy notes written above. Chika Sims, OTR/L
--- NOTE | 2019-06-18 15:28 | NUR ---
Discharge instructions reviewed with patient/family. Patient receptive and verbalizes understanding. Follow-up care arranged. Written instructions given to patient/family. MARCIA HARRIS
--- NOTE | 2019-06-21 09:27 | NUR ---
PHYSICAL THERAPY CO-SIGN I approve of the Physical Therapy notes written above. NORBERTO ZAVALA PT,DPT
== END 2019-06-18 15:28 | disposition home health service (06) | DRG 470 ==
LOC: SDC 00:38 → 5E 08:38 → SDC 10:30 → 5E 17:42
PROVIDERS: Internal Medicine; Orthopaedic Surgery; ADMIT Internal Medicine
PROC: 0SRC0J9 Replacement of Right Knee Joint with Synthetic Substitute, Cemented, Open Approach (ICD-10-PCS; principal; 2019-06-15)
DX: M17.11 Unilateral primary osteoarthritis, right knee (principal); I95.9 Hypotension, unspecified; R06.82 Tachypnea, not elsewhere classified; I10 Essential (primary) hypertension; K21.9 Gastro-esophageal reflux disease without esophagitis; E78.5 Hyperlipidemia, unspecified; F32.9 Major depressive disorder, single episode, unspecified; F41.1 Generalized anxiety disorder; M47.9 Spondylosis, unspecified; J44.9 Chronic obstructive pulmonary disease, unspecified; Z96.612 Presence of left artificial shoulder joint; G47.00 Insomnia, unspecified; Z98.51 Tubal ligation status; Z90.49 Acquired absence of other specified parts of digestive tract; Z90.710 Acquired absence of both cervix and uterus; Z98.891 History of uterine scar from previous surgery; Z83.3 Family history of diabetes mellitus; Z84.89 Family history of other specified conditions; Z88.8 Allergy status to other drugs, medicaments and biological substances; Z91.048 Other nonmedicinal substance allergy status; Z79.899 Other long term (current) drug therapy; Z82.49 Family history of ischemic heart disease and other diseases of the circulatory system; Z80.3 Family history of malignant neoplasm of breast; Z80.8 Family history of malignant neoplasm of other organs or systems; Z83.49 Family history of other endocrine, nutritional and metabolic diseases

== ENCOUNTER → 2019-07-21 | Outpatient (CLI) | payer OTHER ==
[~2019-07-21] MED LIST changes: +ASPIRIN325 M2 PO; +HYDROCODONE-AC1 EAC1 PO; +KETOROLAC10 MG PO; +Lovenox40 MG/0.4 SC
== END | disposition home or self-care (01) ==
LOC: RAD 09:51
DX: Z96.651 Presence of right artificial knee joint (principal)

== ENCOUNTER 2019-08-15 19:37 | Emergency (ER) | payer OTHER ==
[~2019-08-15] VITALS: Ht 154.9 cm; Wt 68.0 kg
[2019-08-15 20:24] LABS: BASO % 0.6 % (0.0-1.0); EOS # 0.2 10*3/uL (0.0-0.4); EOS % 2.1 % (1.0-4.0); HEMATOCRIT 43.6 % (37.0-47.0); HEMOGLOBIN 13.7 g/dl (12.0-16.0); LYMPH % 27.7 % (27.0-41.0); MEAN CELL VOLUME 84.2 fl (81.0-99.0); MEAN CORPUSCULAR HGB 26.4 pg (27.0-31.0); MEAN CORPUSCULAR HGB CONC 31.4 g/dl (33.0-37.0); MEAN PLATELET VOLUME 9.6 fl (9.6-12.3); MONO # 0.6 10*3/uL (0.1-1.0); MONO % 8.5 % (3.0-9.0); NEUT # 4.4 10*3/uL (2.3-7.9); NEUT % 60.8 % (47.0-73.0); PLATELET COUNT AUTOMATED 347 10*3/uL (130-400); RED BLOOD COUNT 5.18 10*6/uL (4.10-5.10); RED CELL DISTRI WIDTH 15.2 % (0-14.5); WHITE BLOOD COUNT 7.2 10*3/uL (4.8-10.8)
[2019-08-15 20:40] LABS: ALBUMIN 3.7 gm/dl (3.1-4.5); ALKALINE PHOSPHATASE 99 U/L (45-117); BUN 9 mg/dl (7-24); CHLORIDE 103 mmol/L (98-107); CREATININE 0.76 mg/dL (0.55-1.02); POTASSIUM 3.8 mmol/L (3.5-5.1); SGOT/AST 19 IU/L (3-35); SGPT/ALT 20 U/L (12-78); SODIUM 138 mmol/L (136-145); TOTAL PROTEIN 7.7 gm/dL (6.4-8.2)
== END 2019-08-15 21:20 | disposition home or self-care (01) ==
LOC: ED 19:37
PROVIDERS: Nurse Practitioner Family
DX: M25.561 Pain in right knee (principal); M06.9 Rheumatoid arthritis, unspecified; I10 Essential (primary) hypertension; Z98.890 Other specified postprocedural states; Z90.49 Acquired absence of other specified parts of digestive tract; Z90.710 Acquired absence of both cervix and uterus; Z79.899 Other long term (current) drug therapy; Z88.8 Allergy status to other drugs, medicaments and biological substances; Z79.82 Long term (current) use of aspirin; Z96.651 Presence of right artificial knee joint

== ENCOUNTER → 2019-09-06 | Outpatient (CLI) | payer OTHER | END | disposition home or self-care (01) | LOC: RAD 11:13 | DX: M54.6 Pain in thoracic spine (principal) ==

== ENCOUNTER → 2019-12-30 | Outpatient (CLI) | payer OTHER | END | disposition home or self-care (01) | LOC: RAD 14:38 | DX: M47.816 Spondylosis without myelopathy or radiculopathy, lumbar region (principal); M43.16 Spondylolisthesis, lumbar region; G95.89 Other specified diseases of spinal cord; Z98.890 Other specified postprocedural states ==

== ENCOUNTER → 2020-04-12 | Outpatient (CLI) | payer OTHER | END | disposition home or self-care (01) | LOC: RAD 11:33 | DX: M25.561 Pain in right knee (principal); W19.XXXA Unspecified fall, initial encounter; Z96.651 Presence of right artificial knee joint ==

== ENCOUNTER → 2020-11-13 | Outpatient (CLI) | payer OTHER | END | disposition home or self-care (01) | LOC: US 15:00 | PROVIDERS: ATTEND Student in an Organized Health Care Education/Training Program | DX: I65.23 Occlusion and stenosis of bilateral carotid arteries (principal); E78.5 Hyperlipidemia, unspecified ==

== ENCOUNTER → 2020-11-25 | Outpatient (CLI) | payer OTHER ==
[~2020-11-25] MED LIST changes: +FERREX 150150 MG PO; +VIIBRYD10 M1 PO
== END | disposition home or self-care (01) ==
LOC: COVID19 10:24
PROVIDERS: ATTEND Surgery
DX: Z01.812 Encounter for preprocedural laboratory examination (principal); Z20.822 Contact with and (suspected) exposure to COVID-19

== ENCOUNTER → 2020-11-30 | Day surgery (SDC) | payer OTHER ==
[~2020-11-30] VITALS: Ht 152.4 cm; Wt 73.5 kg
[2020-11-30 08:15] VITALS: BP 123/75
[2020-11-30 09:40] VITALS: BP 106/66
[2020-11-30 09:55] VITALS: BP 120/72
[2020-11-30 10:06] VITALS: BP 120/75
== END ==
LOC: SDC 11-27 08:00
PROVIDERS: ATTEND Surgery
DX: Z12.11 Encounter for screening for malignant neoplasm of colon (principal); K29.50 Unspecified chronic gastritis without bleeding; I10 Essential (primary) hypertension; K21.9 Gastro-esophageal reflux disease without esophagitis; J44.9 Chronic obstructive pulmonary disease, unspecified; M19.90 Unspecified osteoarthritis, unspecified site; F41.9 Anxiety disorder, unspecified; F32.9 Major depressive disorder, single episode, unspecified; Z79.899 Other long term (current) drug therapy

== ENCOUNTER → 2020-12-21 | Outpatient (CLI) | payer OTHER | END | disposition home or self-care (01) | LOC: MAMMO 10:30 | PROVIDERS: ATTEND Family Medicine | DX: Z12.31 Encounter for screening mammogram for malignant neoplasm of breast (principal); N64.89 Other specified disorders of breast ==

== ENCOUNTER → 2022-01-04 | Outpatient (CLI) | payer OTHER | END | disposition home or self-care (01) | LOC: ORTHO 02:36 | PROVIDERS: ATTEND Orthopaedic Surgery | DX: M17.12 Unilateral primary osteoarthritis, left knee (principal); M25.762 Osteophyte, left knee ==

== ENCOUNTER → 2022-01-23 | Outpatient (CLI) | payer OTHER | END | disposition home or self-care (01) | LOC: MRI 09:35 | PROVIDERS: ATTEND Orthopaedic Surgery | DX: S83.412A Sprain of medial collateral ligament of left knee, initial encounter (principal); S83.242A Other tear of medial meniscus, current injury, left knee, initial encounter; M25.462 Effusion, left knee; M17.12 Unilateral primary osteoarthritis, left knee; M71.22 Synovial cyst of popliteal space [Baker], left knee; R60.0 Localized edema; X58.XXXA Exposure to other specified factors, initial encounter; Y93.89 Activity, other specified; Y92.89 Other specified places as the place of occurrence of the external cause; Y99.8 Other external cause status ==

== ENCOUNTER → 2023-04-17 | Day surgery (SDC) | payer MEDICARE, OTHER ==
[~2023-04-17] VITALS: Ht 152.4 cm; Wt 74.8 kg
[~2023-04-17] MED LIST changes: +AMLODIPINE BESYL5 MG PO; +BREO ELLIPTA 11 EACH INH; +CYCLOBENZAPRINE10 MG PO; +FLUONAZOLE200 M1 PO; +OMEPRAZOLE40 MG PO; +VALSARTAN80 MG PO
[2023-04-17 09:49] VITALS: BP 123/77
[2023-04-17 10:04] VITALS: BP 125/83
[2023-04-17 10:19] VITALS: BP 130/75
== END | disposition home or self-care (01) ==
LOC: SDC 04-14 11:00
PROVIDERS: ATTEND Surgery
DX: K21.9 Gastro-esophageal reflux disease without esophagitis (principal); K29.50 Unspecified chronic gastritis without bleeding; K44.9 Diaphragmatic hernia without obstruction or gangrene; Z87.11 Personal history of peptic ulcer disease; M19.90 Unspecified osteoarthritis, unspecified site; F41.9 Anxiety disorder, unspecified; F32.A Depression, unspecified; I10 Essential (primary) hypertension; J44.9 Chronic obstructive pulmonary disease, unspecified; Z98.890 Other specified postprocedural states; Z90.710 Acquired absence of both cervix and uterus; Z79.899 Other long term (current) drug therapy

== ENCOUNTER 2023-04-21 13:03 | Emergency (ER) | payer MEDICARE, OTHER ==
[~2023-04-21] VITALS: Ht 152.4 cm; Wt 74.8 kg
[~2023-04-21 13:03] MED LIST changes: -AMLODIPINE BESYL5 MG PO; -CYCLOBENZAPRINE10 MG PO; -FLUONAZOLE200 M1 PO; -OMEPRAZOLE40 MG PO; -VALSARTAN80 MG PO
[2023-04-21] MEDS ORDERED: OMEPRAZOLE40 MG PO (13:12)
[2023-04-21] MEDS ORDERED: FLUONAZOLE200 M1 PO (13:12)
[2023-04-21] MEDS ORDERED: VALSARTAN80 MG PO (13:13)
[2023-04-21] MEDS ORDERED: AMLODIPINE BESYL5 MG PO (13:14)
[2023-04-21 13:55] LABS: BILIRUBIN Negative (Negative); BLOOD Negative (Negative); CLARITY Clear (Clear); COLOR Yellow (Yellow); GLUCOSE Negative (Negative); KETONE Negative (Negative); LEUKO ESTERASE Negative (Negative); NITRITE Negative (Negative); PH 6.5 (4.5-8.0); SPECIFIC GRAVITY <= 1.005 (1.001-1.030); UROBILINOGEN 0.2 E.U./dl (0.0-1.0)
[2023-04-21 14:14] LABS: BASO # 0.1 10*3/uL (0.0-0.1); BASO % 0.6 % (0.0-1.0); EOS # 0.1 10*3/uL (0.0-0.4); EOS % 1.4 % (1.0-4.0); LYMPH # 2.2 10*3/uL (1.3-4.4); LYMPH % 27.2 % (27.0-41.0); MEAN CELL VOLUME 65.6 fl (81.0-99.0); MEAN CORPUSCULAR HGB 18.9 pg (27.0-31.0); MEAN CORPUSCULAR HGB CONC 28.8 g/dl (33.0-37.0); MEAN PLATELET VOLUME 8.6 fl (9.6-12.3); MONO # 0.6 10*3/uL (0.1-1.0); NEUT % 62.4 % (47.0-73.0); PLATELET COUNT AUTOMATED 387 10*3/uL (130-400); RED BLOOD COUNT 4.88 10*6/uL (4.10-5.10); RED CELL DISTRI WIDTH 21.2 % (0-14.5); WHITE BLOOD COUNT 8.1 10*3/uL (4.8-10.8)
[2023-04-21 14:23] LABS: BACTERIA TRACE; EPITHELIAL CELLS 0-2; RBC 0-2 rbc/hpf (0-2)
[2023-04-21 14:41] LABS: ALKALINE PHOSPHATASE 99 U/L (46-116); BUN 9 mg/dl (9-23); CHLORIDE 106 mmol/L (98-107); POTASSIUM 3.7 mmol/L (3.4-5.1); SGPT/ALT 58 U/L (10-49); TOTAL PROTEIN 7.2 gm/dL (6.0-8.0)
[2023-04-21] MEDS ORDERED: CYCLOBENZAPRINE10 MG PO (16:32)
== END 2023-04-21 16:39 | disposition home or self-care (01) ==
LOC: ED 13:03
PROVIDERS: Nurse Practitioner Family
DX: S22.41XA Multiple fractures of ribs, right side, initial encounter for closed fracture (principal); M54.50 Low back pain, unspecified; M25.552 Pain in left hip; M25.551 Pain in right hip; M19.90 Unspecified osteoarthritis, unspecified site; F41.9 Anxiety disorder, unspecified; F32.A Depression, unspecified; J44.9 Chronic obstructive pulmonary disease, unspecified; I10 Essential (primary) hypertension; Z87.442 Personal history of urinary calculi; Z88.5 Allergy status to narcotic agent; Z88.8 Allergy status to other drugs, medicaments and biological substances; Z98.51 Tubal ligation status; Z90.710 Acquired absence of both cervix and uterus; Z98.890 Other specified postprocedural states; W22.8XXA Striking against or struck by other objects, initial encounter; Y93.89 Activity, other specified; Y92.89 Other specified places as the place of occurrence of the external cause; Y99.8 Other external cause status

== ENCOUNTER 2023-05-28 21:01 | Emergency (ER) | payer MEDICARE, OTHER ==
[~2023-05-28 21:01] MED LIST changes: +AMLODIPINE BESYL5 MG PO; +CYCLOBENZAPRINE10 MG PO; +FLUONAZOLE200 M1 PO; +OMEPRAZOLE40 MG PO; +VALSARTAN80 MG PO
[2023-05-29] MEDS ORDERED: HYDROCODONE-AC1 EAC1 PO (00:28)
== END 2023-05-29 00:30 | disposition home or self-care (01) ==
LOC: ED 21:01
DX: M54.50 Low back pain, unspecified (principal); M25.551 Pain in right hip; M19.90 Unspecified osteoarthritis, unspecified site; F41.9 Anxiety disorder, unspecified; F32.A Depression, unspecified; J44.9 Chronic obstructive pulmonary disease, unspecified; I10 Essential (primary) hypertension; Z87.442 Personal history of urinary calculi; Z88.8 Allergy status to other drugs, medicaments and biological substances; Z98.51 Tubal ligation status; Z90.49 Acquired absence of other specified parts of digestive tract; Z90.710 Acquired absence of both cervix and uterus; Z98.890 Other specified postprocedural states

== ENCOUNTER → 2023-07-04 | Outpatient (CLI) | payer MEDICARE, OTHER ==
[2023-07-04 13:14] LABS: BASO % 0.5 % (0.0-1.0); EOS # 0.1 10*3/uL (0.0-0.4); EOS % 1.3 % (1.0-4.0); LYMPH # 1.7 10*3/uL (1.3-4.4); LYMPH % 22.3 % (27.0-41.0); MEAN CELL VOLUME 66.8 fl (81.0-99.0); MEAN CORPUSCULAR HGB CONC 28.4 g/dl (33.0-37.0); MONO # 0.5 10*3/uL (0.1-1.0); NEUT # 5.2 10*3/uL (2.3-7.9); NEUT % 69.5 % (47.0-73.0); PLATELET COUNT AUTOMATED 468 10*3/uL (130-400); RED BLOOD COUNT 5.54 10*6/uL (4.10-5.10); RED CELL DISTRI WIDTH 24.3 % (0-14.5); WHITE BLOOD COUNT 7.5 10*3/uL (4.8-10.8)
[2023-07-04 13:27] LABS: ACT PARTIAL THROMBO TIME 24.5 SECONDS (20.0-32.1)
[2023-07-04 13:39] LABS: ALKALINE PHOSPHATASE 111 U/L (46-116); BUN 10 mg/dl (9-23); CHLORIDE 103 mmol/L (98-107); SGPT/ALT 52 U/L (10-49); TOTAL PROTEIN 7.9 gm/dL (6.0-8.0)
== END | disposition home or self-care (01) ==
LOC: LAB 12:47
PROVIDERS: ATTEND Physician Assistant Surgical
DX: I10 Essential (primary) hypertension (principal); E78.5 Hyperlipidemia, unspecified; M19.011 Primary osteoarthritis, right shoulder; M25.711 Osteophyte, right shoulder; K21.9 Gastro-esophageal reflux disease without esophagitis; Z90.49 Acquired absence of other specified parts of digestive tract

== ENCOUNTER → 2023-07-09 | Outpatient (CLI) | payer MEDICARE, OTHER ==
[2023-07-10 08:09] LABS: HBSAG Negative (Negative); HEP B CORE AB, IGM Negative (Negative); HEPATITIS C ANTIBODY Non Reactive (Non Reactive)
== END | disposition home or self-care (01) ==
LOC: LAB 12:31
PROVIDERS: ATTEND Student in an Organized Health Care Education/Training Program
DX: R74.01 Elevation of levels of liver transaminase levels (principal)

== ENCOUNTER → 2023-07-15 | Outpatient (CLI) | payer MEDICARE, OTHER ==
[~2023-07-15] MED LIST changes: +NITROSTAT0.6 M1 SL; +VITAMIN D3125 MC1 PO; +[UNRECOGNIZED DRUG - OTHER] PO
== END | disposition home or self-care (01) ==
LOC: US 01:36
PROVIDERS: ATTEND Family Medicine
DX: R74.01 Elevation of levels of liver transaminase levels (principal); Z90.49 Acquired absence of other specified parts of digestive tract

== ENCOUNTER → 2023-07-16 | Outpatient (CLI) | payer MEDICARE, OTHER | END | disposition home or self-care (01) | LOC: CARD 00:35 | PROVIDERS: ATTEND Family Medicine | DX: Z01.810 Encounter for preprocedural cardiovascular examination (principal) ==

== ENCOUNTER → 2023-10-13 | Outpatient (CLI) | payer MEDICARE, OTHER ==
[2023-10-13 13:01] LABS: BASO # 0.1 10*3/uL (0.0-0.1); BASO % 0.8 % (0.0-1.0); EOS # 0.1 10*3/uL (0.0-0.4); EOS % 1.5 % (1.0-4.0); HEMATOCRIT 41.3 % (37.0-47.0); LYMPH # 2.1 10*3/uL (1.3-4.4); LYMPH % 28.3 % (27.0-41.0); MEAN CELL VOLUME 74.3 fl (81.0-99.0); MEAN CORPUSCULAR HGB 22.1 pg (27.0-31.0); MEAN CORPUSCULAR HGB CONC 29.8 g/dl (33.0-37.0); MEAN PLATELET VOLUME 9.4 fl (9.6-12.3); MONO # 0.6 10*3/uL (0.1-1.0); MONO % 7.9 % (3.0-9.0); NEUT # 4.5 10*3/uL (2.3-7.9); NEUT % 61.1 % (47.0-73.0); PLATELET COUNT AUTOMATED 411 10*3/uL (130-400); RED BLOOD COUNT 5.56 10*6/uL (4.10-5.10); RED CELL DISTRI WIDTH 22.1 % (0-14.5); WHITE BLOOD COUNT 7.4 10*3/uL (4.8-10.8)
[2023-10-13 13:11] LABS: ACT PARTIAL THROMBO TIME 24.1 SECONDS (20.0-32.1)
[2023-10-13 13:54] LABS: ALKALINE PHOSPHATASE 109 U/L (46-116); BUN 10 mg/dl (9-23); CHLORIDE 104 mmol/L (98-107); POTASSIUM 3.9 mmol/L (3.4-5.1); SGPT/ALT 18 U/L (5-49); TOTAL PROTEIN 7.6 gm/dL (6.0-8.0)
== END | disposition home or self-care (01) ==
LOC: LAB 12:18
PROVIDERS: ATTEND Nurse Practitioner
DX: T14.90XA Injury, unspecified, initial encounter (principal); M79.609 Pain in unspecified limb; K44.9 Diaphragmatic hernia without obstruction or gangrene; X58.XXXA Exposure to other specified factors, initial encounter

== ENCOUNTER → 2024-09-09 | Outpatient (CLI) | payer MEDICARE, OTHER ==
[~2024-09-09] MED LIST changes: +COQ-10100 MG PO; +GAS-X125 MG PO; +HYCODAN 5 MG-1473 ML PO; +MIRALAX17 GM PO; +TYLENOL325 M3 PO
[2024-09-09 11:07] LABS: BASO # 0.1 10*3/uL (0.0-0.1); BASO % 0.6 % (0.0-1.0); EOS # 0.1 10*3/uL (0.0-0.4); EOS % 1.4 % (1.0-4.0); HEMATOCRIT 41.7 % (37.0-47.0); MEAN CELL VOLUME 77.4 fl (81.0-99.0); MEAN CORPUSCULAR HGB 24.1 pg (27.0-31.0); MEAN CORPUSCULAR HGB CONC 31.2 g/dl (33.0-37.0); MEAN PLATELET VOLUME 9.3 fl (9.6-12.3); MONO # 0.6 10*3/uL (0.1-1.0); MONO % 7.7 % (3.0-9.0); NEUT # 5.4 10*3/uL (2.3-7.9); NEUT % 68.8 % (47.0-73.0); PLATELET COUNT AUTOMATED 375 10*3/uL (130-400); RED BLOOD COUNT 5.39 10*6/uL (4.10-5.10); WHITE BLOOD COUNT 7.8 10*3/uL (4.8-10.8)
[2024-09-09 11:30] LABS: ALKALINE PHOSPHATASE 95 U/L (46-116); BUN 7 mg/dl (9-23); CHLORIDE 108 mmol/L (98-107); POTASSIUM 4.1 mmol/L (3.4-5.1); SGPT/ALT 50 U/L (5-49)
== END | disposition home or self-care (01) ==
LOC: LAB 10:33
PROVIDERS: Student in an Organized Health Care Education/Training Program; ATTEND Family Medicine
DX: Z01.812 Encounter for preprocedural laboratory examination (principal); E83.52 Hypercalcemia

== ENCOUNTER 2024-09-16 11:22 | Emergency (ER) | payer MEDICARE, OTHER ==
[~2024-09-16] VITALS: Ht 152.4 cm; Wt 70.3 kg
[~2024-09-16 11:22] MED LIST changes: -MELOXICAM15 MG PO
[2024-09-16] MEDS ORDERED: Acetaminophen/Oxycodone 5 MG/325 MG TABLET PO ONE (11:30)
[2024-09-16] MEDS ORDERED: MELOXICAM15 MG PO (12:11)
== END 2024-09-16 14:01 | disposition home or self-care (01) ==
LOC: ED 11:22
DX: S63.502A Unspecified sprain of left wrist, initial encounter (principal); I10 Essential (primary) hypertension; E78.5 Hyperlipidemia, unspecified; M19.90 Unspecified osteoarthritis, unspecified site; F41.9 Anxiety disorder, unspecified; F32.A Depression, unspecified; J44.9 Chronic obstructive pulmonary disease, unspecified; Z88.8 Allergy status to other drugs, medicaments and biological substances; Z98.890 Other specified postprocedural states; Z90.49 Acquired absence of other specified parts of digestive tract; Z90.710 Acquired absence of both cervix and uterus; W19.XXXA Unspecified fall, initial encounter; Y93.89 Activity, other specified; Y92.89 Other specified places as the place of occurrence of the external cause; Y99.8 Other external cause status

== ENCOUNTER → 2024-09-16 | Outpatient (CLI) | payer MEDICARE, OTHER ==
[~2024-09-16] MED LIST changes: +MELOXICAM15 MG PO
== END | disposition home or self-care (01) ==
LOC: MAMMO 10:33
PROVIDERS: ATTEND Family Medicine
DX: Z12.31 Encounter for screening mammogram for malignant neoplasm of breast (principal)

== ENCOUNTER 2025-10-28 05:07 | Emergency (ER) | payer MEDICARE, OTHER ==
[~2025-10-28] VITALS: Ht 152.4 cm; Wt 70.3 kg
[~2025-10-28 05:07] MED LIST changes: +MELOXICAM15 MG PO
[2025-10-28] MEDS ORDERED: NAPROXEN250 MG PO (05:53)
== END 2025-10-28 06:05 | disposition home or self-care (01) ==
LOC: ED 05:07
DX: S70.02XA Contusion of left hip, initial encounter (principal); M06.9 Rheumatoid arthritis, unspecified; J44.9 Chronic obstructive pulmonary disease, unspecified; F41.9 Anxiety disorder, unspecified; F32.A Depression, unspecified; I10 Essential (primary) hypertension; Z88.8 Allergy status to other drugs, medicaments and biological substances; Z98.890 Other specified postprocedural states; Z90.710 Acquired absence of both cervix and uterus; Z90.49 Acquired absence of other specified parts of digestive tract; Z87.442 Personal history of urinary calculi; W55.12XA Struck by horse, initial encounter; Y93.89 Activity, other specified; Y92.89 Other specified places as the place of occurrence of the external cause; Y99.8 Other external cause status